=== PATIENT | female | born 1975 | race African-American/Black ===

== ENCOUNTER → 2021-04-02 01:05 | Outpatient (CLI) | payer OTHER, SELFPAY ==
[2021-04-03 14:53] LABS: SARS-CoV-2 RNA PCR Negative
== END ==
PROVIDERS: Visit Provider Obstetrics & Gynecology
DX: Z01.812 Encounter for preprocedural laboratory examination (principal); Z20.822 Contact with and (suspected) exposure to COVID-19
CPT/HCPCS: C9803; U0003; U0005

== ENCOUNTER 2021-04-06 00:22 | Day surgery (SDC) | payer OTHER, SELFPAY ==
[2021-03-30 14:28] VITALS: BMI 44.4
--- NOTE | 2021-04-05 16:13 | PM.IMHP ---
H&P: HPI History of Present Illness Date/Time: 04/05/21 16:13 She desires permanent sterilization and has history of heavy periods. She was informed of the details of the laparoscopic salpingectomy. Informed of risks of procedure to include bleeding infection injury to other organs in the area and need to repair and/or remove those organs. Risk of laparotomy risk of hysterectomy. Risk of regret. 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 Discussed risk of ectopic discussed what an ectopic is discussed that the risk of ectopic is low with the salpingectomy but is not zero. Discussed that an ectopic can be fatal. There is risk of anesthesia risk of pain at the site. Discussed all other nonpermanent forms of control to include control pills NuvaRing Depo Provera intrauterine contraception diaphragm and discussed vasectomy she declines all of the other forms of contraception. Discussed postop precautions. Her questions were answered consent was signed. She also has a history of heavy periods. She declines IUD. She declines any other hormonal options. She has been informed previously of options of endometrial ablation and has decided that she will get this done at the same time. She had an endometrial biopsy in March which showed endometrial polyp no hyperplasia or carcinoma. She was informed that the procedure entails dilating or opening her cervix and then looking inside uterine cavity with a camera. If there is anything in the cavity like a polyp or fibroid or abnormal appearing area then will remove it with an instrument. Then will burn the lining which usually takes two minutes. Risk of procedure is bleeding infection injury to other organs in area and need to repair and or remove those organs if necessary. Risk of a laparoscopy. Risk of not being able to perform the procedure. Risk of uterine perforation. Risk of hysterectomy. There is usually minimal blood loss but there is a risk of a large blood loss. Fifty percent chance of amenorrhea. Over 80% chance of improvement of bleeding. 20% chance of no improvement of symptoms. The discharge may take 2-6 weeks to resolve. Chief Complaint: Request sterilization and heavy periods. Review of Systems Review of Systems: All systems reviewed & are unremarkable except as noted in HPI and below Cardiovascular: Cardiovascular: Reports no additional cardiovascular complaints, Denies chest pain and Denies dyspnea Respiratory: Respiratory: Reports no additional respiratory complaints and Denies dyspnea Gastrointestinal: Gastrointestinal: Reports abdominal pain, Denies change in bowel habits, Denies diarrhea, Denies nausea and Denies vomiting Genitourinary: Genitourinary: Reports pelvic pain Musculoskeletal: Musculoskeletal: Reports back pain Integumentary/Breasts: Skin/Breast: Reports system reviewed and no additional complaints, except as docu Neurologic: Reports system reviewed and no additional complaints, except as documented [facility] Past Medical History Medical History (Updated 04/05/21 @ 16:16 by Chuy Woodson MD) Acid reflux History of endometrial biopsy Irritable bowel disease Pneumonia Ulcerative colitis Vaginal irritation Surgical History Surgical History History of colposcopy History of cryosurgery Previous section S/P cholecystectomy Family History Family History Mother History of blood clots Hypertension Cerebrovascular accident Other , Dad's sister Breast cancer Other , mother's sister Carcinoma of colon Grandparent Heart attack Hypertension Cerebrovascular accident Social History Social History Smoking status: Never smoker Alcoho
[2021-04-06] VITALS (7 sets, daily range): BP systolic 102–131; BP diastolic 65–79; PULSE 52–80; RESP 13–18; TEMP 36.2–36.6; O2SAT 100
--- NOTE | 2021-04-06 06:28 | ECG_ITS ---
Measurements Intervals [place] Rate: 75 P: 56 AL: 148 QRS: 15 QRSD: 73 T: 25 QT: 363 QTc: 406 Interpretive Statements SINUS RHYTHM NONSPECIFIC T-WAVE ABNORMALITY- ANTEROLAT/INF LEADS BASELINE ARTIFACT- I, II, AVR, AVL BORDERLINE ECG Electronically Signed On 04-06-2021 7:51:50 CDT by Ulisses Quan D.O.
[2021-04-06] MEDS: KETOROLAC 15 MG/ML VIAL (*BKC) IV PUSH (06:55)
[2021-04-06] MEDS: ACETAMINOPHEN 500 MG TABLET 1000 MG PO (06:56)
--- NOTE | 2021-04-06 06:59 | WPDANESEPPF ---
Anes - Initial Pre Proc Eval Procedure: Operation Date: 04/06/21 07:30 Proposed Procedures p Laparoscopic Bilateral Salpingectomy, Hysteroscopy, Sravani Endometrial Ablation - Chuy Woodson MD Date/Time: 04/06/21 06:59 Surgeon: Chuy Woodson MD Pre Op Diagnosis: Desires Sterilization Patient Data Age: 46 Gender: F Height: 5 ft 6 in Weight: 122 kg Allergies Allergy/AdvReac Type Severity Reaction Status Date / Time erythromycin base Allergy Mild Vomiting Verified 04/06/21 06:29 pineapple Allergy Mild Itching Verified 04/06/21 06:29 Home Medications Medication Instructions Recorded Confirmed Type cholecalciferol (vitamin D3) 1,250 1,250 mcg PO DAILY 06/29/20 04/06/21 History mcg (50,000 unit) capsule mesalamine 0.375 gram 1.5 gm PO QAM 06/29/20 04/06/21 History capsule,extended release 24 hr metoprolol succinate 50 mg capsule 50 mg PO DAILY 06/29/20 04/06/21 History sprinkle, ext. release 24 hr ferrous sulfate 325 mg (65 mg 325 mg PO DAILY 12/21/20 04/06/21 History iron) tablet cetirizine [Zyrtec] 10 mg PO DAILY 03/30/21 04/06/21 History phentermine 37.5 mg PO DAILY 03/30/21 04/06/21 History topiramate 50 mg PO DAILY 03/30/21 04/06/21 History Laboratory Tests 04/06/21 06:53 Hgb Pending Hct Pending Patient hx anesthesia problems: none Family hx anesthesia problems: none PMFSH Past Medical History Medical History Acid reflux History of endometrial biopsy Irritable bowel disease Pneumonia Ulcerative colitis Vaginal irritation Surgical History Surgical History History of colposcopy History of cryosurgery Previous section S/P cholecystectomy Family History Family History Mother History of blood clots Hypertension Cerebrovascular accident Other , Dad's sister Breast cancer Other , mother's sister Carcinoma of colon Grandparent Heart attack Hypertension Cerebrovascular accident Social History Social History Smoking status: Never smoker Alcohol intake: current Drinks per week: 1 Substance use: never Substance use type: does not use Living arrangements: with family Gender identity (if verbalized by the patient): Female Sexual Orientation (if Verbalized by the Patient): Straight or Heterosexual Spiritual care concerns: No Anes - Eval Final PreProcedure Day of Procedure 04/06/21 06:59 Patient weight: morbidly obese Heart: regular rate and rhythm Lungs: clear to auscultation Airway: Mallampati scale class II Neurological: alert and oriented Last oral intake: >/= 8 hours ASA classification: III Emergent: no Anesthetic plan: proceed Anesthesia type and monitoring: general ETT and standard monitoring Informed Consent: The patient's anesthetic plan and its attendant risks and benefits were discussed with the patient/family/POA. Questions were solicited and answers provided to the satisfaction of the patient/family/POA.
[2021-04-06] MEDS: LACTATED RINGERS 1,000 ML 30 ML IV CONT ×2 (07:00→09:31)
--- NOTE | 2021-04-06 07:17 | WPDHPUPDATE1 ---
History and Physical Update Update Date/Time: 04/06/21 07:17 History and Physical has been reviewed, including an updated exam of the patient. There are NO changes in the patient's condition. Risks, benefits, and alternatives have been discussed and questions answered. Patient agrees to proceed with procedure.
[2021-04-06] MEDS: ceFAZolin SODIUM 1 GM VIAL 3 GM IV PUSH (07:51)
[2021-04-06] MEDS: BUPIVACAINE HCL 0.5% PF 30 ML VIAL INFILTRATE (08:05)
--- NOTE | 2021-04-06 09:20 | PM.OP ---
Procedure Note - Brief Procedure Note - Brief Date of procedure: 04/06/21 Pre-op diagnosis: Desires Sterilization Menorrhagia Post-op diagnosis: same Procedure performed: Laparoscopic bilateral salpingectomy, [id number] and dilation and currettage, attempted Sravani endometrial ablation. Anesthesia: GETA Surgeon: Chuy Woodson MD Estimated blood loss (mL): 10 Drains: No Packing: No Pathology: yes (right and left fallopian tubes and endometrial currettings.) Complications: Other complications (Possible partial perforation of uterus, ablation apparatus would not enable) Condition: stable Disposition: PACU Findings: Uterus with several small subserosal fibroids, adhesion band in the lower abdomen, normal ovaries, uterine cavity sound to 9cm, cervical length 4cm, uterine length 5cm, no polyp, mildly proliferative tissue. After the second device would not create a seal, a hysteroscope was performed and there appeared to be partial perforation at the right and lateral fundus, area appeared thin,did not appear full thickness, no bleeding, no intestinal organs visualized.
--- NOTE | 2021-04-06 10:38 | SUR.PHASEII ---
Called Dr. Woodson's office for discharge orders.
--- NOTE | 2021-04-06 10:40 | PM.PROC ---
Procedure Note - Detailed Date of procedure: 04/06/21 Pre-op diagnosis: Desires Sterilization Subjective menorrhagia Post-op diagnosis: same Procedure performed: 1. Laparoscopic bilateral salpingectomy 2. Lysis of adhesions 3. Diagnostic hysteroscopy and dilation and curettage 4. Attempted the nerve endometrial ablation. Description of procedure: After informed consent was obtained patient was taken to the operating room and general endotracheal anesthesia was administered. She was placed in low lithotomy need prep prepped sterile fashion. Attention was turned to the vagina speculum inserted single-tooth tenaculum placed on anterior lip of the cervix. Caldwell uterine manipulator placed into the cervical canal. The speculum was removed. Attention was then turned to the abdomen. With sterile gloves a horizontal incision was made at the umbilicus. the subcutaneous tissue was dissected down to the fascia. The subcutaneous tissue was approximately 5 cm deep. The anterior fascia was incised with Alex scissors the posterior fascia was grabbed and incised with Alex scissors the peritoneal was entered bluntly. 0 Vicryl was used to attach to the fascia and the Hisson port was inserted. A pneumoperitoneum of 15 mm per mercury was obtained.Patient was placed in Trendelenburg position. The 5 mm port was inserted under laparoscopic visualization on the left abdominal lower side which was free of any adhesions. Attention was turned to the right side of the abdomen and a 5 mm port was inserted under laparoscopic visualization. The pelvic organs were visualized. Using the LigaSure the right fallopian tube was excised to near the entrance to the uterus. This was removed through the port. Attention was then turned to the left fallopian tube which was grabbed at the distal end and cauterized from the mesial salpinx to near entrance to the uterus. The fallopian tube was removed through the 5 mm port. One of the fallopian tubes was dilated and could not fit through the 5 mm ports. The camera was then switched to the 5 mm port and the tube was grabs through the Barraza port and removed. Hemostasis was noted at both sites where the fallopian tubes were removed. The adhesion band that was to the left of the midline which was omental tissue large band this was lysed with the ligature instrument. Hemostasis was noted.Patient was taken out of Trendelenburg position the pneumoperitoneum was released. An additional 0 Vicryl stitch was used to close completely the umbilical port to close the fascia completely. The subcutaneous tissue was approximated with a 3 0 Vicryl. The skin incisions were closed in a subcuticular fashion with 4 O Vicryl And skin glue. Patient was given subcutaneous lidocaine 1% at each incision site prior to incision. Total of 8 cc of lidocaine was used. Attention was turned to the vagina. Speculum was inserted. Single-tooth tenaculum placed on the anterior lip of the cervix. The uterus was sounded to 9 cm. The cervix was dilated to an 8 Nugent dilator. The cervical length was 4cm. The uterine length was 5 cm The hysteroscope was inserted into the cavity. The findings were a normal uterine cavity with mildly proliferative tissue. A curettage was performed with moderate amount of tissue obtained. The hysteroscope was removed. The Sravani ablation instrument was inserted into the cavity. Cavity assessment was performed and confirmed intact. The ablation was enabled. The air code then came on the machine with the Torrey nerve there code was 006. The Torrey over wrapped was present. He suggested trying another hand piece. Another hand piece was inserted in the usual fashion. The CO2 cavity assessment did not clear. The apparatus was removed. The hysteroscope was reinserted. At the fundus there appeared to be possible partial separatin of the endometrium at the right and left of the fundus. Hemostatic. No abdominal organs visualized. It did not appear to be a full
--- NOTE | 2021-04-06 11:20 | SUR.PHASEII ---
RN called office to make sure pain medicine was electronically sent to pharmacy from office since it wasn't showing up in our system. Pain medicine was sent to [facility] in [place].
== END 2021-04-06 11:35 | disposition home or self-care (01) ==
PROVIDERS: Anesthesiology; Visit Provider Obstetrics & Gynecology
PROC: 0UDB8ZZ Extraction of Endometrium, Via Natural or Artificial Opening Endoscopic (ICD-10-PCS; CPT 58558; principal; 2021-04-06 07:30)
DX: Z30.2 Encounter for sterilization (principal); N92.0 Excessive and frequent menstruation with regular cycle; N83.8 Other noninflammatory disorders of ovary, fallopian tube and broad ligament; K21.9 Gastro-esophageal reflux disease without esophagitis; K58.9 Irritable bowel syndrome, unspecified
CPT/HCPCS: 58661; 58563; 36415; 85014; 85018; 88302; 88305; 93005; A9270; C9803; J0330; J0690; J1100; J1885; J2250; J2405; J2704; J2710; J3010; J7030; J7120; U0003; U0005